=== PATIENT | female | born 1980 | race Caucasian/White ===

== ENCOUNTER 2021-07-26 13:17 | Outpatient (CLI) | payer OTHER | END 2021-07-26 14:50 | disposition home or self-care (01) | LOC: MAMO-SONO 13:17 | PROVIDERS: ATTEND Obstetrics & Gynecology | DX: N63.0 Unspecified lump in unspecified breast (principal); N64.4 Mastodynia ==

== ENCOUNTER 2024-12-16 13:26 | Outpatient (CLI) | payer OTHER | END 2024-12-16 15:49 | disposition home or self-care (01) | LOC: TOM 13:26 | PROVIDERS: ATTEND Radiology Diagnostic Radiology | DX: R10.84 Generalized abdominal pain (principal) ==